=== PATIENT | female | born 1985 | race American Indian/Alaskan Native ===

== ENCOUNTER 2022-01-15 18:04 | Outpatient (CLI) | payer OTHER ==
[2022-01-15] MEDS ORDERED: PRENATAL CAPLE1 EAC1 (18:59)
[2022-01-15] MEDS ORDERED: ANTIFUNGAL113 GM (18:59)
== END 2022-01-15 19:34 | disposition home or self-care (01) ==
LOC: NST 18:04
PROVIDERS: ATTEND Obstetrics & Gynecology
DX: Z34.82 Encounter for supervision of other normal pregnancy, second trimester (principal)

== ENCOUNTER 2022-05-23 06:40 | Inpatient (IN) | payer OTHER ==
[~2022-05-23] VITALS: Ht 162.6 cm; Wt 103.4 kg
[~2022-05-23 06:40] MED LIST: ANTIFUNGAL113 GM; PRENATAL CAPLE1 EAC1
[2022-05-23] MEDS ORDERED: FOLIC ACID0.8 M1 PO (08:40)
[2022-05-23] MEDS ORDERED: IRON325 MG PO (08:40)
== END 2022-05-25 13:05 | disposition home or self-care (01) | DRG 807 ==
LOC: LDR 06:40 → OB/GYN 10:10
PROVIDERS: ADMIT Obstetrics & Gynecology; ATTEND Obstetrics & Gynecology
PROC: 10E0XZZ Delivery of Products of Conception, External Approach (ICD-10-PCS; principal; 2022-05-23)
PROC: 4A1HXCZ Monitoring of Products of Conception, Cardiac Rate, External Approach (ICD-10-PCS; 2022-05-23)
DX: O80 Encounter for full-term uncomplicated delivery (principal); Z37.0 Single live birth; Z3A.39 39 weeks gestation of pregnancy; Z20.822 Contact with and (suspected) exposure to COVID-19